=== PATIENT | male | born 1985 | race Hispanic/Latino ===

== ENCOUNTER 2019-08-22 20:32 | Inpatient (IN) | payer SELFPAY ==
[~2019-08-22] VITALS: Ht 170.2 cm; Wt 94.8 kg
[2019-08-22] MEDS ORDERED: ONDANSETRON HCL 4 MG/2 ML VIAL ONE (20:55)
[2019-08-22] MEDS ORDERED: SODIUM CHLORIDE 0.9% 1000ML 1,000 ML IV ONE ×2 (20:56→23:14)
[2019-08-22 20:57] LABS: BASOPHILS % (AUTO) 0.4 % (0.0-5.0); EOSINOPHILS % (AUTO) 0.5 % (0.0-8.0); HEMATOCRIT 44.4 % (42-54); LYMPHOCYTES % (AUTO) 22.4 % (21.0-51.0); MEAN CORPUSCULAR HEMOGLOBIN 32.1 pg (27.0-33.0); MEAN CORPUSCULAR VOLUME 94.3 fL (79-99); MONOCYTES % (AUTO) 8.3 % (3.0-13.0); NEUTROPHILS % (AUTO) 67.9 % (40.0-77.0); PLATELET COUNT (AUTO) 366 K/uL (130-400); RED BLOOD CELL COUNT(AUTO) 4.71 MIL/uL (4.50-6.20); RED CELL DISTRIBUTION WIDTH 11.2 % (11.0-15.5); WHITE BLOOD COUNT (AUTO) 13.1 K/uL (4.8-10.8)
[2019-08-22 21:00] LABS: APPEARANCE,URINE Clear (CLEAR); BILIRUBIN,URINE Negative (NEGATIVE); COLOR,URINE Dark Yellow (YELLOW); GLUCOSE, URINE (UA) Negative (NEGATIVE); KETONES,URINE Trace mg/dL (NEGATIVE); LEUKOCYTE ESTERASE ,URINE Moderate (NEGATIVE); NITRATE,URINE Negative (NEGATIVE); OCCULT BLOOD,URINE Negative (NEGATIVE); PH,URINE 6.5 (5.0-8.0); PROTEIN,URINE Trace mg/dL (NEGATIVE)
[2019-08-22 21:10] LABS: CREATININE 1.1 mg/dL (0.5-1.5); POTASSIUM 3.7 mmol/L (3.5-5.1)
[2019-08-22 21:12] LABS: INR 0.96 (0.85-1.15); PARTIAL THROMBOPLASTIN TIME 25.9 SEC (26.3-35.5); PROTHROMBIN TIME 10.4 SEC (9.6-11.6)
[2019-08-22 21:14] LABS: BILIRUBIN,TOTAL 0.4 mg/dL (0.2-1.0); TOTAL PROTEIN, SERUM 7.9 g/dL (6.0-8.3)
[2019-08-22 21:14] LABS: RBC,URINE None Seen /HPF (0-1); WBC,URINE 26-50 /HPF (0-1)
[2019-08-22 21:15] LABS: BACTERIA,URINE Few /HPF (None Seen); MUCUS,URINE Many LPF (None Seen); SQUAMOUS EPITHELIAL CELL,UR None Seen /HPF (0-2)
[2019-08-22] MEDS ORDERED: IOHEXOL-350 75 ML VIAL IV ONE (21:29)
[2019-08-22] MEDS ORDERED: LACTULOSE 20 GM/30 ML UDCUP PO PRN (22:45)
[2019-08-22] MEDS ORDERED: MORPHINE SULFATE 2 MG/ML 1ML SYG IV PRN (22:45)
[2019-08-22] MEDS ORDERED: ACETAMINOPHEN 325 MG TAB PO PRN ×2 (22:45)
[2019-08-22] MEDS ORDERED: ONDANSETRON HCL 4 MG/2 ML VIAL IV PRN (22:45)
[2019-08-22 22:55] LABS: AMPHET/METH SCREEN,URINE NEGATIVE (NEGATIVE); BARBITURATE SCREEN, URINE NEGATIVE (NEGATIVE); BENZODIAZEPINES SCREEN,URINE NEGATIVE (NEGATIVE); CANNABINOID SCREEN,URINE POSITIVE (NEGATIVE); COCAINE SCREEN,URINE POSITIVE (NEGATIVE); OPIATE SCREEN,URINE NEGATIVE (NEGATIVE); PHENCYCLIDINE SCREEN,URINE NEGATIVE (NEGATIVE)
[2019-08-22] MEDS ORDERED: METRONIDAZOLE 500MG/100ML BAG 100 ML ONE (23:14)
[2019-08-22] MEDS: CEFTRIAXONE SODIUM 1 GM IVP SCH (23:15)
[2019-08-22] MEDS ORDERED: SODIUM CHLORIDE 0.9% 100 ML IV ONE (23:15)
[2019-08-22] MEDS ORDERED: OCTREOTIDE ACETATE 100 MCG/ML AMP ONE (23:44)
[2019-08-22] MEDS ORDERED: OCTREOTIDE ACETATE 200 MCG/ML 5 ML VIAL ONE (23:44)
[2019-08-22] MEDS ORDERED: SODIUM CHLORIDE 0.9% 250 ML IV ONE (23:45)
[2019-08-23] VITALS (7 sets, daily range): BP systolic 126–145; BP diastolic 69–93
--- NOTE | 2019-08-23 01:20 | NUR ---
PT DENIES HOME MEDS
[2019-08-23] MEDS ORDERED: CEFTRIAXONE SODIUM 1 GM ONE (01:26)
[2019-08-23 02:56] LABS: BASOPHILS % (AUTO) 0.5 % (0.0-5.0); EOSINOPHILS % (AUTO) 0.8 % (0.0-8.0); HEMATOCRIT 39.7 % (42-54); LYMPHOCYTES % (AUTO) 26.1 % (21.0-51.0); MEAN CORPUSCULAR HEMOGLOBIN 32.1 pg (27.0-33.0); MEAN CORPUSCULAR VOLUME 94.5 fL (79-99); MONOCYTES % (AUTO) 7.6 % (3.0-13.0); NEUTROPHILS % (AUTO) 64.7 % (40.0-77.0); PLATELET COUNT (AUTO) 317 K/uL (130-400); RED CELL DISTRIBUTION WIDTH 11.3 % (11.0-15.5); WHITE BLOOD COUNT (AUTO) 9.8 K/uL (4.8-10.8)
[2019-08-23 03:05] LABS: POTASSIUM 3.9 mmol/L (3.5-5.1)
--- NOTE | 2019-08-23 06:28 | NUR ---
DR. CRISTAL CARTER
[2019-08-23] MEDS: METRONIDAZOLE 500MG/100ML BAG 100 ML IV SCH ×3 (06:44→22:12)
[2019-08-23 08:12] LABS: HEMATOCRIT 41.3 % (42-54)
[2019-08-23] MEDS: SODIUM CHLORIDE 0.9% 1000ML 1,000 ML IV SCH ×3 (08:41→22:58)
[2019-08-23] MEDS: PANTOPRAZOLE SODIUM 80 MG in SODIUM CHLORIDE 0.9% 100 ML IV SCH (09:40)
[2019-08-23 13:55] LABS: HEMATOCRIT 40.8 % (42-54)
[2019-08-23] MEDS: CEFTRIAXONE SODIUM 1 GM IVP SCH (22:44)
[2019-08-24] VITALS (30 sets, daily range): BP systolic 97–147; BP diastolic 39–78
[2019-08-24] MEDS: SODIUM CHLORIDE 0.9% 1000ML 1,000 ML IV SCH ×2 (04:41→09:45)
[2019-08-24] MEDS: METRONIDAZOLE 500MG/100ML BAG 100 ML IV SCH ×3 (05:23→22:30)
[2019-08-24 06:09] LABS: BASOPHILS % (AUTO) 0.6 % (0.0-5.0); EOSINOPHILS % (AUTO) 1.3 % (0.0-8.0); HEMATOCRIT 39.3 % (42-54); LYMPHOCYTES % (AUTO) 22.3 % (21.0-51.0); MEAN CORPUSCULAR HGB CONC 33.6 g/dL (32.0-36.0); MEAN CORPUSCULAR VOLUME 95.4 fL (79-99); MONOCYTES % (AUTO) 8.1 % (3.0-13.0); NEUTROPHILS % (AUTO) 67.4 % (40.0-77.0); PLATELET COUNT (AUTO) 311 K/uL (130-400); RED BLOOD CELL COUNT(AUTO) 4.12 MIL/uL (4.50-6.20); RED CELL DISTRIBUTION WIDTH 11.2 % (11.0-15.5); WHITE BLOOD COUNT (AUTO) 9.1 K/uL (4.8-10.8)
[2019-08-24 06:33] LABS: CREATININE 1.2 mg/dL (0.5-1.5); POTASSIUM 3.9 mmol/L (3.5-5.1)
[2019-08-24] MEDS: PANTOPRAZOLE SODIUM 80 MG in SODIUM CHLORIDE 0.9% 100 ML IV SCH (09:44)
--- NOTE | 2019-08-24 11:30 | NUR ---
CM NOTE Met with patient for purposes of dc planning: patient is independent, active, employed, drives, has family MD. Mom will provide transport home. Community resources for etoh dependence discussed- patient would like more information. States through out all the liquor bottles and is going to stop drinking. States has never tried before. Encouraged to seek support, verbalized understanding. Community resource pkt given Discussed [facility], has used in the past.CM to follow
[2019-08-24] MEDS ORDERED: PROPOFOL 10 MG/ML 20ML VIAL IV ONE ×2 (13:34→13:37)
[2019-08-24] MEDS: CEFTRIAXONE SODIUM 1 GM IVP SCH (22:30)
[2019-08-25] MEDS: SODIUM CHLORIDE 0.9% 1000ML 1,000 ML IV SCH (00:41)
[2019-08-25 03:00] VITALS: BP 129/72
[2019-08-25 04:16] LABS: BASOPHILS % (AUTO) 0.3 % (0.0-5.0); EOSINOPHILS % (AUTO) 1.5 % (0.0-8.0); HEMATOCRIT 37.8 % (42-54); LYMPHOCYTES % (AUTO) 21.9 % (21.0-51.0); MEAN CORPUSCULAR HEMOGLOBIN 31.8 pg (27.0-33.0); MEAN CORPUSCULAR HGB CONC 33.9 g/dL (32.0-36.0); MONOCYTES % (AUTO) 6.3 % (3.0-13.0); NEUTROPHILS % (AUTO) 69.7 % (40.0-77.0); PLATELET COUNT (AUTO) 308 K/uL (130-400); RED BLOOD CELL COUNT(AUTO) 4.02 MIL/uL (4.50-6.20); RED CELL DISTRIBUTION WIDTH 11.1 % (11.0-15.5); WHITE BLOOD COUNT (AUTO) 7.8 K/uL (4.8-10.8)
[2019-08-25 04:44] LABS: POTASSIUM 3.4 mmol/L (3.5-5.1)
[2019-08-25] MEDS: METRONIDAZOLE 500MG/100ML BAG 100 ML IV SCH ×2 (05:23→14:26)
[2019-08-25 08:09] VITALS: BP 117/48
[2019-08-25] MEDS ORDERED: PANTOPRAZOLE SODIUM 40 MG TABLET.DR PO SCH (09:00)
--- NOTE | 2019-08-25 10:20 | NUR ---
Reviewed plan of care with Christen Sanchez NP. Reported potassium level of 3.6, asymptomatic. Received verbal order for potassium protocol. Patient tolerating CLD and FLD without nausea, vomiting or diarrhea. Plan to advance diet to GI soft and replace potassium level with PO supplement and then discharge to home on PO protonix and GI soft diet. To follow up with Dr. Benedict in 1 week.
[2019-08-25] MEDS ORDERED: PANT40TA25 PO (10:28)
[2019-08-25] MEDS ORDERED: POTASSIUM CHLORIDE 20MEQ/100ML 100 ML IV PRN (10:30)
[2019-08-25] MEDS ORDERED: POTASSIUM CHLORIDE 10% ELIXIR 20 MEQ/15 ML UDCUP PO PRN (10:30)
[2019-08-25] MEDS ORDERED: LIDOCAINE HCL-MPF 1% 2ML VIAL IV PRN (10:30)
[2019-08-25] MEDS ORDERED: POTASSIUM CHLORIDE 20 MEQ ERTAB PO PRN (10:30)
[2019-08-25] MEDS ORDERED: POTASSIUM CHLORIDE 20 MEQ ERTAB PO ONE (10:48)
[2019-08-25 11:09] VITALS: BP 134/75
--- NOTE | 2019-08-25 11:24 | NUR ---
CM NOTE met with patient for purposes of dc planning: patient is independent, active, employed, drives, has family MD. Mom will provide transport home. Community resources for etoh dependence discussed- patient would like more information. States through out all the liquor bottles and is going to stop drinking. States has never tried before. Encouraged to seek support, verbalized understanding. Community resource pkt given Discussed [facility] lor, has used in the past.CM to follow Addendum: 08/25/19 at 1131 by STEVE PATEL RN CM duplicate note, this took place yesterday Addendum: 08/25/19 at 1131 by STEVE PATEL RN CM Amended: Links added.
--- NOTE | 2019-08-25 16:30 | NUR ---
Discharge instructions reviewed, prescription for protonix daily given and GI soft diet recommendations provided. IVs to LFA, RAC and RFA removed, bleeding controlled and dressing secured. Patient notified of follow up appointments with Dr. Calero for 08/[address] Benedict for 08/31. Patient and spouse verbalized understanding.
== END 2019-08-25 18:44 | disposition home or self-care (01) | DRG 378 ==
LOC: EDH 20:32 → OBSVTOIN 20:33 → EDHIP 20:33 → 4CH 08-23 00:59
PROVIDERS: ADMIT Internal Medicine; ATTEND Internal Medicine
PROC: 0DB68ZX Excision of Stomach, Via Natural or Artificial Opening Endoscopic, Diagnostic (ICD-10-PCS; principal; 2019-08-24)
DX: K29.71 Gastritis, unspecified, with bleeding (principal); N39.0 Urinary tract infection, site not specified; K25.4 Chronic or unspecified gastric ulcer with hemorrhage; K52.9 Noninfective gastroenteritis and colitis, unspecified; K76.0 Fatty (change of) liver, not elsewhere classified; F10.20 Alcohol dependence, uncomplicated; F12.90 Cannabis use, unspecified, uncomplicated; K21.9 Gastro-esophageal reflux disease without esophagitis
CPT/HCPCS: 36415; 43239; 74177; 80048; 80053; 80305; 81001; 82270; 82550; 83690; 84484; 85014; 85018; 85025; 85610; 85730; 86677; 86850; 86900; 86901; 87088; 93005; 99291; A4606; C9113; G0378; G0480; J0696; J2354; J2405; J2704; J3490; J7030; Q9967

== ENCOUNTER 2019-08-29 12:01 | Emergency (ER) | payer SELFPAY ==
[~2019-08-29 12:01] MED LIST: PANT40TA25 PO
[2019-08-29] MEDS ORDERED: KETOROLAC TROMETHAMINE 60 MG/2 ML VIAL ONE (13:09)
[2019-08-29 13:31] LABS: BASOPHILS % (AUTO) 0.5 % (0.0-5.0); EOSINOPHILS % (AUTO) 1.1 % (0.0-8.0); HEMATOCRIT 44.3 % (42-54); LYMPHOCYTES % (AUTO) 17.4 % (21.0-51.0); MEAN CORPUSCULAR HEMOGLOBIN 32.2 pg (27.0-33.0); MEAN CORPUSCULAR HGB CONC 33.2 g/dL (32.0-36.0); MEAN CORPUSCULAR VOLUME 96.9 fL (79-99); MONOCYTES % (AUTO) 6.6 % (3.0-13.0); NEUTROPHILS % (AUTO) 74.2 % (40.0-77.0); PLATELET COUNT (AUTO) 348 K/uL (130-400); RED BLOOD CELL COUNT(AUTO) 4.57 MIL/uL (4.50-6.20); RED CELL DISTRIBUTION WIDTH 11.7 % (11.0-15.5); WHITE BLOOD COUNT (AUTO) 12.3 K/uL (4.8-10.8)
[2019-08-29 13:42] LABS: POTASSIUM 4.3 mmol/L (3.5-5.1)
[2019-08-29 13:46] LABS: ALBUMIN 3.8 g/dL (3.5-5.0); BILIRUBIN,TOTAL 0.3 mg/dL (0.2-1.0); TOTAL PROTEIN, SERUM 8.2 g/dL (6.0-8.3)
== END 2019-08-29 14:24 | disposition home or self-care (01) ==
LOC: EDH 12:01
DX: M79.674 Pain in right toe(s) (principal); M25.571 Pain in right ankle and joints of right foot; M79.89 Other specified soft tissue disorders; K21.9 Gastro-esophageal reflux disease without esophagitis
CPT/HCPCS: 36415; 73660; 80053; 84550; 85025; 96372; 99284; J1885